=== PATIENT | female | born 1935 | race African-American/Black ===

== ENCOUNTER 2018-05-09 13:22 | Inpatient (IN) | payer OTHER ==
--- NOTE | 2018-05-09 13:29 | PDOC ---
History of Present Illness - General Chief Complaint: Shortness of Breath Stated Complaint: Shortness of Breath Time Seen by Provider: 05/09/18 13:29 Past History - Past Medical History Allergies/Adverse Reactions: Allergies Allergy/AdvReac Type Severity Reaction Status Date / Time No Known Allergies Allergy Verified 03/27/18 16:41 Home Medications: Ambulatory Orders Amlodipine Besylate [Norvasc -] 5 mg PO DAILY 03/27/18 Azathioprine [Azasan] 100 mg PO DAILY 03/27/18 Cholestyramine/Aspartame [Cholestyramine Light Packet] 4 gm PO BID 03/27/18 Ipratropium [place] 2 spray NS TID PRN 03/27/18 Metoprolol Succinate [Toprol Xl] 50 mg PO DAILY 03/27/18 Rivaroxaban [Xarelto -] 15 mg PO DAILY #14 tab 03/27/18 Spironolactone [Aldactone] 25 mg PO DAILY 03/27/18 Torsemide [Demadex] 20 mg PO BID 03/27/18 Tramadol HCl [Ultram] 50 mg PO BID 03/27/18 COPD: No DVT: No - Immunization History Immunization Up to Date: Yes - Suicide/Smoking/Psychosocial Hx Smoking History: Never smoked Have you smoked in the past 12 months: No Hx Alcohol Use: No Drug/Substance Use Hx: No Substance Use Type: None *DC/Admit/Observation/Transfer - Referrals Referrals: Stephani Yanez MD [Primary Care Provider] - - Patient Instructions - Post Discharge Activity
--- NOTE | 2018-05-09 13:32 | PDOC ---
History of Present Illness - General Chief Complaint: Shortness of Breath Stated Complaint: Shortness of Breath Time Seen by Provider: 05/09/18 13:29 - History of Present Illness Initial Comments: 83 year old female with PMH (per chart review) of HTN, CAD (3 V CABG), chronic dyspnea, CHF (preserved EF), early-onset dementia, Hep C, and newly discovered A -Fib (2 months prior) presenting with worsening shortness of breath and right sided lower extremity weakness since Monday. Per home health health and social care teacher and daughter at bedside, she has had a right sided lower extremity weakness for at least a few weeks but acutely worsened over the past week. wheel braider at bedside states that she had to stop her walk short a few times this week because she said that her right leg felt weak and she was fatigued with slightly increased respiratory rate. She did not syncopize or complain of chest pain, headache, fevers, chills, nausea, vomiting, urinary symptoms or other complaints. 05/09/18 13:37 Past History - Past Medical History Allergies/Adverse Reactions: Allergies Allergy/AdvReac Type Severity Reaction Status Date / Time No Known Allergies Allergy Verified 03/27/18 16:41 Home Medications: Ambulatory Orders Amlodipine Besylate [Norvasc -] 5 mg PO DAILY 03/27/18 Azathioprine [Azasan] 100 mg PO DAILY 03/27/18 Ipratropium [place] 2 spray NS TID PRN 03/27/18 Metoprolol Succinate [Toprol Xl] 50 mg PO DAILY 03/27/18 Rivaroxaban [Xarelto -] 15 mg PO DAILY #14 tab 03/27/18 Spironolactone [Aldactone -] 25 mg PO DAILY 03/27/18 Torsemide [Demadex -] 20 mg PO BID 03/27/18 Tramadol HCl [Ultram] 50 mg PO BID 03/27/18 Azathioprine [Imuran -] 100 mg PO DAILY tablet 05/11/18 Rivaroxaban [Xarelto -] 15 mg PO DAILY@1800 tablet 05/11/18 COPD: No DVT: No - Immunization History Immunization Up to Date: Yes - Suicide/Smoking/Psychosocial Hx Smoking History: Never smoked Have you smoked in the past 12 months: No Hx Alcohol Use: No Drug/Substance Use Hx: No Substance Use Type: None Review of Systems - Review of Systems Constitutional: No: Chills, Diaphoresis, Fever HEENTM: No: Blurred Vision, Recent change in vision Respiratory: Yes: Shortness of Breath. No: Cough, Orthopnea Cardiac (ROS): Yes: Lightheadedness. No: Chest Pain, Edema, Palpitations, Syncope ABD/GI: No: Diarrhea, Nausea, Vomiting : No: Burning, Dysuria, Discharge, Frequency Musculoskeletal: No: Back Pain, Gout, Joint Pain Integumentary: No: Bruising, Change in Color, Dryness, Erythema Neurological: Yes: Pre-Existing Deficit. No: Headache, Numbness Psychiatric: No: Anxiety, Depression Endocrine: No: Increased Hunger, Increased Thirst Hematologic/Lymphatic: No: Anemia, Blood Clots *Physical Exam - Physical Exam General Appearance: Yes: Nourished, Appropriately Dressed. No: Apparent Distress HEENT: positive: EOMI, LT, Normal Voice Neck: positive: Trachea midline, Normal Thyroid. negative: Tender Respiratory/Chest: positive: Lungs Clear, Normal Breath Sounds. negative: Chest Tender, Respiratory Distress, Accessory Muscle Use Cardiovascular: positive: Regular Rhythm, Regular Rate Gastrointestinal/Abdominal: positive: Normal Bowel Sounds, Flat. negative: Tender Musculoskeletal: positive: Other (Decreased strength in the right lower extremity). negative: Normal Inspection, Decreased Range of Motion Integumentary: positive: Normal Color, Dry, Warm Neurologic: positive: tank builder helper II-XII NML intact, Fully Oriented, Alert, Normal Mood/ Affect, Normal Response, Motor Strength 5/5 ED Treatment Course - LABORATORY CBC & Chemistry Diagram: 05/11/18 06:45 05/11/18 06:45 Medical Decision Making - Medical Decision Making 83 year old female with CAD and newly diagnosed afib presenting with presyncopal episodes and worsened right lower extremity weakness. Unclear as to what could be causing these symptoms as labs only demonstrating some CHF and head CT is negative. Patient does also have bilateral LE pitting edema so this could be related to worsening CHF. However, given patient's arthersclerotic history and overall clinical picture, patient admitted to neuro tele for further workup. 05/15/18 09:04 *DC/Admit/Observation/Transfer Diagnosis at time of Disposition: Pre-syncope - Discharge Dispostion Condition at time of disposition: Stable Decision to Admit order: Yes - Referrals - Patient Instructions - Post Discharge Activity
[2018-05-09 15:31] LABS: URINE APPEARANCE CLEAR; URINE BILIRUBIN NEGATIVE (<2.0 mg/dL); URINE COLOR YELLOW; URINE GLUCOSE (UA) NEGATIVE (NEGATIVE); URINE KETONE NEGATIVE (NEGATIVE); URINE LEUK ESTERASE TRACE (NEGATIVE); URINE NITRITE NEGATIVE (NEGATIVE); URINE PROTEIN NEGATIVE (NEGATIVE)
--- NOTE | 2018-05-09 15:31 | PDOC ---
Attending Attestation - HPI HPI: Patient is an 83 year old female with PMHx of HTN, CAD (3 vessel CABG), HTN, chronic dyspnea, CHF (preserved EF), early-onset dementia, Hep C, and newly discovered A-Fib (2 months prior) presenting with 3 days of shortness of breath and right sided lower extremity weakness. Patients aide states right sided weakness at baseline that has worsened intermittently since Monday. <Agnes Guan - Last Filed: 05/09/18 15:32> - Resident Resident Name: Jennifer Villa - ED Attending Attestation I have performed the following: I have examined & evaluated the patient, The case was reviewed & discussed with the resident, I agree w/resident's findings & plan, Exceptions are as noted - Physicial Exam PE: 05/09/18 16:43 Patient is awake and alert, well-nourished, in no distress Normocephalic and atraumatic PERRLA, EOMI, conjunctiva are pink CTA Irregularly irregular No lower extremity edema Cranial nerves II through XII are grossly intact; there is no pronation drift; motor is 5 of 54; Right lower extremity drift is noted; gait is deferred - Medical Decision Making 05/09/18 16:43 83-year-old female with recently diagnosed atrial fibrillation presents to the ER with worsening right lower extremity weakness and several episodes of dyspnea that resolved prior to arrival. In the ER, patient is nonfocal neurologically with right lower extremity drift noted on a neurological exam. Babinski is negative bilaterally. EKG reveals A. fib. Differential diagnoses includes ACS versus A. fib with RVR versus UTI versus CVA. Will obtain CT of head. Will obtain cardiac enzymes, UA and urine culture. We'll place an ops. <Hermilo Smith - Last Filed: 05/09/18 16:44>
[2018-05-09 15:44] LABS: BASO % 1.6 % (0-2.0); EOS % 1.4 % (0-4.5); HEMATOCRIT 37.3 % (32.4-45.2); HEMOGLOBIN 12.4 GM/dL (10.7-15.3); LYMPH % 30.8 % (8-40); MCH 29.2 pg (25.7-33.7); MCHC 33.1 g/dl (32.0-36.0); MEAN CELL VOLUME 88.3 fl (80-96); MEAN PLT VOLUME 8.6 fl (7.5-11.1); MONO % 7.3 % (3.8-10.2); NEUT % 58.9 % (42.8-82.8); PLATELET COUNT 264 K/MM3 (134-434); RBC 4.23 M/mm3 (3.60-5.2); WHITE BLOOD COUNT 6.5 K/mm3 (4.0-10.0)
[2018-05-09 15:51] LABS: EPI CELLS RARE /HPF (FEW); URINE HYALINE CAST 5 /lpf
[2018-05-09 15:57] LABS: INR 1.18 (0.83-1.09)
[2018-05-09 16:13] LABS: ALBUMIN 3.4 g/dl (3.4-5.0); ALK PHOS 57 U/L (45-117); ANION GAP 6 MMOL/L (8-16); BILIRUBIN,TOTAL 0.3 mg/dL (0.2-1); BLOOD UREA NITROGEN 23 mg/dL (7-18); CALCIUM 9.3 mg/dL (8.5-10.1); CHLORIDE 104 mmol/L (98-107); CHOLESTEROL 147 mg/dL (50-200); CO2 27 mmol/L (21-32); CREATININE 0.7 mg/dL (0.55-1.3); GLUCOSE,RANDOM 75 mg/dL (74-106); HDL CHOLESTEROL 68 mg/dL (40-60); POTASSIUM 4.1 mmol/L (3.5-5.1); SGOT/AST 14 U/L (15-37); SGPT/ALT 11 U/L (13-61); SODIUM 138 mmol/L (136-145); TOT PROT 7.2 g/dl (6.4-8.2); TRIGLYCERIDES 61 mg/dL (0-150)
[2018-05-09] MEDS: SODIUM CHLORIDE 1,000 ML IV SCH (16:15)
--- NOTE | 2018-05-09 18:04 | HP ---
CHIEF COMPLAINT: weakness, shortness of breath and right sided lower extremity weakness since Monday PCP: Dr. Stephani Yanez pcp, Dr Melissa [phone] HISTORY OF PRESENT ILLNESS: Patient is an 83 year old female with a significant past medical history of hypertension, CAD (3 vessel CABG), chronic dyspnea, CHF (preserved EF), dementia , Hep C, and newly diagnosed atrial fibrillation (on xarelto). Patient is brought into the ED by her family for a 2 month history of worsening shortness of breath on exertion and right sided lower extremity weakness worsening since Monday. Per her daughter patient ambulates with a rolling walker with standby assistance and has been having difficulty walking short distances secondary to increased dyspnea as well as c/o of right lower extremity weakness. No syncopal episodes or falls reported. Patient denies chest pain, shortness of breath at rest, fevers, chills, nausea, vomiting, urinary symptoms or other complaints. Daughter reports that patient was seen by her magazine designer, Dr. Melissa last week and a holter monitor and echocardiogram was also done last week. She is not aware of the results of these tests. In the ED she was noted to have ER course was notable for: (1)left upper thigh dependent edema from top of thigh to knee. (2)negative troponin (3) Recent Travel: PAST MEDICAL HISTORY: PAST SURGICAL HISTORY: Social History: Smoking: Alcohol: Drugs: Family History: Allergies No Known Allergies Allergy (Verified 03/27/18 16:41) HOME MEDICATIONS: Home Medications Medication Instructions Recorded Amlodipine Besylate [Norvasc -] 5 mg PO DAILY 03/27/18 Azathioprine [Azasan] 100 mg PO DAILY 03/27/18 Cholestyramine/Aspartame 4 gm PO BID 03/27/18 [Cholestyramine Light Packet] Ipratropium [place] 2 spray NS TID PRN 03/27/18 Metoprolol Succinate [Toprol Xl] 50 mg PO DAILY 03/27/18 Rivaroxaban [Xarelto -] 15 mg PO DAILY #14 tab 03/27/18 Spironolactone [Aldactone] 25 mg PO DAILY 03/27/18 Torsemide [Demadex] 20 mg PO BID 03/27/18 Tramadol HCl [Ultram] 50 mg PO BID 03/27/18 PHYSICAL EXAMINATION Vital Signs - 24 hr 05/09/18 13:30 Temperature 98.9 F Blood Pressure 154/84 O2 Sat by Pulse 100 Oximetry (%) GENERAL: Awake, alert, in no acute distress. HEAD: Normal with no signs of trauma. EYES: Pupils equal, round and reactive to light, extraocular movements intact, sclera anicteric, conjunctiva clear. No lid lag. EARS, NOSE, THROAT: Ears normal, nares patent, oropharynx clear without exudates. Moist mucous membranes. NECK: Normal range of motion, supple without lymphadenopathy, JVD, or masses. LUNGS: Breath sounds equal, clear to auscultation bilaterally. No wheezes, and no crackles. No accessory muscle use. HEART: irregular rate and rhythm ABDOMEN: Soft, nontender, not distended, normoactive bowel sounds, no guarding, no rebound, no masses. No hepatomegaly or splenomegaly. MUSCULOSKELETAL: Normal range of motion at all joints. No bony deformities or tenderness. No CVA tenderness. UPPER EXTREMITIES: No peripheral edema. LOWER EXTREMITIES:left upper thigh dependent edema from top of thigh to knee. NEUROLOGICAL: Normal speech. Normal gait. PSYCHIATRIC: Appropriate mood and affect. SKIN: Warm, dry, normal turgor, no rashes or lesions noted, normal capillary refill. Laboratory Results - last 24 hr 05/09/18 05/09/18 05/09/18 14:25 15:32 15:32 WBC 6.5 RBC 4.23 Hgb 12.4 Hct 37.3 MCV 88.3 MCH 29.2 MCHC 33.1 RDW 14.0 Plt Count 264 MPV 8.6 Absolute Neuts (auto) 3.8 Neutrophils % 58.9 D Lymphocytes % 30.8 D Monocytes % 7.3 Eosinophils % 1.4 Basophils % 1.6 Nucleated RBC % 0 PT with INR 14.00 H INR 1.18 H Sodium Potassium Chloride Carbon Dioxide Anion Gap BUN Creatinine Creat Clearance w eGFR Random Glucose Calcium Total Bilirubin AST ALT Alkaline Phosphatase Creatine Kinase Troponin I Total Protein Albumin Triglycerides Cholesterol Total LDL Cholesterol HDL Cholesterol Urine Color Yellow Urine Appearance Clear Urine pH 5.0 Ur Specific [place] 1.016 Urine Protein Negative Urine Glucose (UA) Negative Urine Ketones Negative Urine Blood Negative Urine Nitrite Negative Urine Bilirubin Negative Urine Urobilinogen 2.0 H Ur Leukocyte Esterase Trace Urine WBC (Auto) 8 Urine RBC (Auto) <1 Ur Epithelial Cells Rare Hyaline Casts 5 Blood Type Antibody Screen 05/09/18 05/09/18 05/09/18 15:32 15:32 15:32 WBC RBC Hgb Hct MCV MCH MCHC RDW Plt Count MPV Absolute Neuts (auto) Neutrophils % Lymphocytes % Monocytes % Eosinophils % Basophils % Nucleated RBC % PT with INR INR Sodium 138 Potassium 4.1 Chloride 104 Carbon Dioxide 27 Anion Gap 6 L BUN 23 H Creatinine 0.7 Creat Clearance w eGFR > 60 Random Glucose 75 Calcium 9.3 Total Bilirubin 0.3 AST 14 L ALT 11 L Alkaline Phosphatase 57 Creatine Kinase 39 Troponin I < 0.02 Cancelled Total Protein 7.2 Albumin 3.4 Triglycerides 61 Cholesterol 147 Total LDL Cholesterol 73 HDL Cholesterol 68 H Urine Color Urine Appearance Urine pH Ur Specific [place] Urine Protein Urine Glucose (UA) Urine Ketones Urine Blood Urine Nitrite Urine Bilirubin Urine Urobilinogen Ur Leukocyte Esterase Urine WBC (Auto) Urine RBC (Auto) Ur Epithelial Cells Hyaline Casts Blood Type A POSITIVE Antibody Screen Negative ASSESSMENT/PLAN: Patient is an 83 year old female with a significant past medical history of hypertension, CAD (3 vessel CABG), chronic dyspnea, CHF (preserved EF), dementia , Hep C, and newly diagnosed atrial fibrillation (on xarelto). Patient is brought into the ED by her family for a 2 month history of worsening shortness of breath on exertion and right sided lower extremity weakness worsening since Monday. Per her daughter patient ambulates with a rolling walker with standby assistance and has been having difficulty walking short distances secondary to increased dyspnea as well as c/o of right lower extremity weakness. No syncopal episodes or falls reported. Patient denies chest pain, shortness of breath at rest, fevers, chills, nausea, vomiting, urinary symptoms or other complaints. Plan: Hypertension, on metoprolol 50mg daily, norvasc 5mg daily. mildly elevated bp. Dyspnea, weakness: troponins negative x 2. attempting to call Dr. melissa office for echo and holter monitor results. CAD, on cholestyramine. Dyspnea with exertion, likely secondary to fluid overload. started on lasix 20mg iv po bid. bnp 3000. tolerating room air. CHF: on metoprolol, lasix bid. monitor intake and output Atrial fibrillation. recent diagnosis. on xarelto. metoprolol. currently rate controlled. Poor mobility: to be followed by PT, fall risk dementia: at baseline. Monitor on tele, trend troponins physical therapy Lasix 20mg bid Fall risk Cardiology consult Seen by neurology full code LOS < 48 hours. low salt diet Visit type - Emergency Visit Emergency Visit: Yes ED Registration Date: 05/09/18 Care time: The patient presented to the Emergency Department on the above date and was hospitalized for further evaluation of their emergent condition. - New Patient This patient is new to me today: Yes Date on this admission: 05/10/18 - Critical Care Critical Care patient: No
[2018-05-09] MEDS ORDERED: ALBUTEROL SO4 2.5/IPRATROPIUM 0.5 INH SOL 3 ML VIAL.NEB. NEB PRN (18:42)
[2018-05-09] MEDS ORDERED: traMADol HCL 50 MG TABLET PO PRN (18:43)
[2018-05-09] MEDS ORDERED: RIVAROXABAN 15 MG TABLET PO ONE (20:01)
[2018-05-09] MEDS ORDERED: FUROSEMIDE 40 MG/4 ML INJECTABLE VIAL IVPUSH ONE (20:06)
[2018-05-09] MEDS ORDERED: FUROSEMIDE 40 MG/4 ML INJECTABLE VIAL ONE (23:00)
[2018-05-10 00:05] VITALS: BMI 34.8
[2018-05-10 07:15] LABS: BASO % 0.8 % (0-2.0); EOS % 2.7 % (0-4.5); HEMATOCRIT 36.2 % (32.4-45.2); HEMOGLOBIN 11.7 GM/dL (10.7-15.3); LYMPH % 48.3 % (8-40); MCH 28.5 pg (25.7-33.7); MCHC 32.5 g/dl (32.0-36.0); MEAN CELL VOLUME 87.9 fl (80-96); MEAN PLT VOLUME 8.7 fl (7.5-11.1); MONO % 8.5 % (3.8-10.2); NEUT % 39.7 % (42.8-82.8); PLATELET COUNT 240 K/MM3 (134-434); RBC 4.11 M/mm3 (3.60-5.2); RDW 14.2 % (11.6-15.6); WHITE BLOOD COUNT 4.2 K/mm3 (4.0-10.0)
[2018-05-10 07:40] LABS: ALBUMIN 2.7 g/dl (3.4-5.0); ALK PHOS 48 U/L (45-117); ANION GAP 6 MMOL/L (8-16); BILIRUBIN,TOTAL 0.4 mg/dL (0.2-1); BLOOD UREA NITROGEN 18 mg/dL (7-18); CALCIUM 8.7 mg/dL (8.5-10.1); CHLORIDE 107 mmol/L (98-107); CHOLESTEROL 122 mg/dL (50-200); CO2 27 mmol/L (21-32); CREATININE 0.5 mg/dL (0.55-1.3); GLUCOSE,RANDOM 69 mg/dL (74-106); HDL CHOLESTEROL 56 mg/dL (40-60); MAGNESIUM 2.1 mg/dL (1.8-2.4); PHOSPHOROUS 3.6 mg/dL (2.5-4.9); POTASSIUM 4.3 mmol/L (3.5-5.1); SGOT/AST 9 U/L (15-37); SGPT/ALT 10 U/L (13-61); SODIUM 141 mmol/L (136-145); TOT PROT 6.1 g/dl (6.4-8.2); TRIGLYCERIDES 57 mg/dL (0-150)
[2018-05-10 08:55] LABS: N-TERMINAL BNP 3219.4 pg/ml (5-450)
[2018-05-10] MEDS ORDERED: FLU VACCINE QUAD 60 MCG/0.5 ML (MDV 18-19) IM ONE (10:00)
[2018-05-10] MEDS ORDERED: FUROSEMIDE 40 MG/4 ML INJECTABLE VIAL IVPUSH SCH (10:00)
--- NOTE | 2018-05-10 10:10 | CON.NEURO ---
Consult - History of Present Illness History of Present Illness: 83 year old female with a significant past medical history of hypertension, CAD (3 vessel CABG), chronic dyspnea, CHF (preserved EF), dementia, Hep C, and newly diagnosed atrial fibrillation (on xarelto). Patient is brought into the ED by her family for a 2 month history of worsening shortness of breath on exertion and right sided lower extremity weakness worsening since Monday. Per her daughter patient ambulates with a rolling walker with standby assistance and has been having difficulty walking short distances secondary to increased dyspnea as well as c/o of right lower extremity weakness. No syncopal episodes or falls reported. Patient denies chest pain, shortness of breath at rest, fevers, chills, nausea, vomiting, urinary symptoms or other complaints. PT poor HX though denies weakness. denies numbness tingling or back pain. HD CT : No definite CT evidence of acute intracranial pathology. There appears to be an approximately 2 cm dural based soft tissue focus within the right posterior lateral aspect of the posterior cranial fossa suggestive of a meningioma on this noncontrast study. Correlation with MRI versus contrast enhanced CT is suggested. - Alcohol/Substance Use Hx Alcohol Use: No - Smoking History Smoking history: Never smoked Have you smoked in the past 12 months: No Home Medications - Allergies Allergies/Adverse Reactions: Allergies Allergy/AdvReac Type Severity Reaction Status Date / Time No Known Allergies Allergy Verified 03/27/18 16:41 - Home Medications Home Medications: Ambulatory Orders Amlodipine Besylate [Norvasc -] 5 mg PO DAILY 03/27/18 Azathioprine [Azasan] 100 mg PO DAILY 03/27/18 Cholestyramine/Aspartame [Cholestyramine Light Packet] 4 gm PO BID 03/27/18 Ipratropium [place] 2 spray NS TID PRN 03/27/18 Metoprolol Succinate [Toprol Xl] 50 mg PO DAILY 03/27/18 Rivaroxaban [Xarelto -] 15 mg PO DAILY #14 tab 03/27/18 Spironolactone [Aldactone] 25 mg PO DAILY 03/27/18 Torsemide [Demadex] 20 mg PO BID 03/27/18 Tramadol HCl [Ultram] 50 mg PO BID 03/27/18 Physical Exam-Neuro Vital Signs: Vital Signs Temperature 98.0 F 05/10/18 08:59 Pulse Rate 78 05/10/18 08:59 Respiratory Rate 16 05/10/18 09:01 Blood Pressure 146/86 05/10/18 08:59 O2 Sat by Pulse Oximetry (%) 98 05/10/18 09:01 Labs: CBC, BMP 05/10/18 05:30 05/10/18 05:30 INR, PTT INR 1.18 (0.83-1.09) H 05/09/18 15:32 - Neuro Exam Level Of Consciousness: Yes: Alert (awake, oriented to place, not yr, EOMI, no facial, motor 5/5 prox and distal including LE , plantars down ) Imaging - Results Cat Scan: Report Reviewed, Image Reviewed Problem List - Problems (1) Right leg weakness Code(s): R29.898 - OTH SYMPTOMS AND SIGNS INVOLVING THE MUSCULOSKELETAL SYSTEM (2) Atrial fibrillation Code(s): I48.91 - UNSPECIFIED ATRIAL FIBRILLATION Qualifiers: Atrial fibrillation type: unspecified Qualified Code(s): I48.91 - Unspecified atrial fibrillation Assessment/Plan 83 year old female with a significant past medical history of hypertension, CAD (3 vessel CABG), chronic dyspnea, CHF (preserved EF), dementia, Hep C, and newly diagnosed atrial fibrillation (on xarelto). Patient is brought into the ED by her family for a 2 month history of worsening shortness of breath on exertion and right sided lower extremity weakness worsening since Monday. Per her daughter patient ambulates with a rolling walker with standby assistance and has been having difficulty walking short distances secondary to increased dyspnea as well as c/o of right lower extremity weakness. No syncopal episodes or falls reported. Patient denies chest pain, shortness of breath at rest, fevers, chills, nausea, vomiting, urinary symptoms or other complaints. HD CT : No definite CT evidence of acute intracranial pathology. There appears to be an approximately 2 cm dural based soft tissue focus within the right posterior lateral aspect of the posterior cranial fossa suggestive of a meningioma on this noncontrast study. Correlation with MRI versus contrast enhanced CT is suggested. AP : Dyspnea with ? Right leg weakness, though no focal ABNL on neuro exam CT noted --unrelated to presentation cardiopulm EDGAR for shortness of breath no signs of new cerebral ischemic event, LS radiculopathy or myelopathy etc consider gait rehab DR MACDONALD
[2018-05-10] MEDS: SPIRONOLACTONE 25 MG TABLET (FP) PO SCH (10:17)
[2018-05-10] MEDS: amLODIPine BESYLATE 5 MG TABLET (FP) PO SCH (10:17)
--- NOTE | 2018-05-10 12:15 | CON.CARD ---
Consult Consult Specialty:: Cardiology Referred by:: Nina Reason for Consultation:: shortness of breath, CHF - History of Present Illness Chief Complaint: shortness of breath History of Present Illness: 83F h/o HTN, CAD (s/p 3 vessel CABG), chronic dyspnea, CHF (preserved EF), dementia, Hep C, and newly diagnosed atrial fibrillation (on xarelto) p/w weakness, dyspnea and RLE weakness since Monday. Usually walks with walker. was feeling weaker and more short of breath so couldnot wakls as far. Sees Dr. Melissa for cardiology, had echo and holter monitor, reportedly normal EF. Recently on Xarelto for new dx afib. Trop neg x 2. Noted to have edema as well. received IV lasix in ER. - Past Medical History Cardio/Vascular: Yes: CAD, CHF - Alcohol/Substance Use Hx Alcohol Use: No - Smoking History Smoking history: Never smoked Have you smoked in the past 12 months: No Home Medications - Allergies Allergies/Adverse Reactions: Allergies Allergy/AdvReac Type Severity Reaction Status Date / Time No Known Allergies Allergy Verified 03/27/18 16:41 - Home Medications Home Medications: Ambulatory Orders Amlodipine Besylate [Norvasc -] 5 mg PO DAILY 03/27/18 Azathioprine [Azasan] 100 mg PO DAILY 03/27/18 Cholestyramine/Aspartame [Cholestyramine Light Packet] 4 gm PO BID 03/27/18 Ipratropium [place] 2 spray NS TID PRN 03/27/18 Metoprolol Succinate [Toprol Xl] 50 mg PO DAILY 03/27/18 Rivaroxaban [Xarelto -] 15 mg PO DAILY #14 tab 03/27/18 Spironolactone [Aldactone] 25 mg PO DAILY 03/27/18 Torsemide [Demadex] 20 mg PO BID 03/27/18 Tramadol HCl [Ultram] 50 mg PO BID 03/27/18 Family Disease History - Family Disease History Family History: Unremarkable Review of Systems - Review of Systems Constitutional: reports: No Symptoms, Weakness Eyes: reports: No Symptoms HENT: reports: No Symptoms Neck: reports: No Symptoms Cardiovascular: reports: No Symptoms Respiratory: reports: SOB on Exertion Gastrointestinal: reports: No Symptoms Genitourinary: reports: No Symptoms Musculoskeletal: reports: No Symptoms Integumentary: reports: No Symptoms Neurological: reports: No Symptoms Endocrine: reports: No Symptoms Hematology/Lymphatic: reports: No Symptoms Psychiatric: reports: No Symptoms Vital Signs: Vital Signs Temperature 98.0 F 05/10/18 08:59 Pulse Rate 78 05/10/18 08:59 Respiratory Rate 16 05/10/18 09:01 Blood Pressure 146/86 05/10/18 08:59 O2 Sat by Pulse Oximetry (%) 98 05/10/18 09:01 Constitutional: Yes: Well Nourished, No Distress, Calm Eyes: Yes: Conjunctiva Clear, EOM Intact HENT: Yes: Atraumatic, Normocephalic Neck: Yes: Supple, Trachea Midline Respiratory: Yes: Regular, Rales Gastrointestinal: Yes: WNL Renal/: Yes: WNL Cardiovascular: Yes: Pulse Irregular JVD: Yes Carotid Bruit: No Heart Sounds: Yes: S1, S2 Musculoskeletal: Yes: WNL Extremities: Yes: WNL Edema: No Peripheral Pulses WNL: No Peripheral Pulses: 2+ Left Doralis Pedis, 2+ Right Dorsalis Pedis Integumentary: Yes: WNL Neurological: Yes: Alert, Oriented ...Motor Strength: WNL Psychiatric: Yes: Alert, Oriented - Other Data Labs, Other Data: CBC, BMP 05/10/18 05:30 05/10/18 05:30 INR, PTT INR 1.18 (0.83-1.09) H 05/09/18 15:32 Troponin, BNP 05/09/18 05/09/18 05/09/18 15:32 15:32 22:38 Troponin I < 0.02 Cancelled B-Natriuretic Peptide 2915.9 H 05/09/18 05/10/18 05/10/18 22:38 05:30 05:30 Troponin I < 0.02 < 0.02 B-Natriuretic Peptide 3219.4 H Troponin, BNP 05/09/18 05/09/18 05/09/18 15:32 15:32 22:38 Troponin I < 0.02 Cancelled B-Natriuretic Peptide 2915.9 H 05/09/18 05/10/18 05/10/18 22:38 05:30 05:30 Troponin I < 0.02 < 0.02 B-Natriuretic Peptide 3219.4 H Assessment/Plan EKG:afib,old septal infarct, no acute ischemic changes CXR: no acute process Tele: afib, rate controlled 83F h/o HTN, CAD (s/p 3 vessel CABG), chronic dyspnea, CHF (preserved EF), dementia, Hep C, and newly diagnosed atrial fibrillation (on xarelto) p/w weakness, dyspnea and RLE weakness dyspnea, acute diastolic CHF exac - JVD on exam, dyspnea on exertion,BNP >3000 likely in setting of CHF exacerbation - continue lasix 20 mg IV BID,on torsemide 20mg BID at home - monitor standing weights, Cr, I/O - would obtain recent testing from Dr. Melissa's office - continue metoprolol, spironolactone, CAD - trop neg x 2, no ischemic changes on EKG, history less consistent with ACS - continue xarelto, metoprolol Afib - rate controlled, continue metoprolol, xarelto HTN - stable, continue current meds
[2018-05-10] MEDS ORDERED: PT OWN MED DRAWER 7, Y5N ONE (12:44)
[2018-05-10] MEDS: azaTHIOprine 50 MG TABLET PO SCH (12:45)
--- NOTE | 2018-05-10 14:27 | PN ---
Physical Exam: SUBJECTIVE: Patient seen and examined at the bedside. feels better today. OBJECTIVE: bnp 3200 Vital Signs Period Temp Pulse Resp BP Sys/Leslie Pulse Ox Last 24 Hr 97.9 F-98.4 F 72-88 16-22 131-168/74-86 98-100 GENERAL: Awake, alert, in no acute distress. HEAD: Normal with no signs of trauma. EYES: Pupils equal, round and reactive to light, extraocular movements intact, sclera anicteric, conjunctiva clear. No lid lag. EARS, NOSE, THROAT: Ears normal, nares patent, oropharynx clear without exudates. Moist mucous membranes. NECK: Normal range of motion, supple without lymphadenopathy, JVD, or masses. LUNGS: Breath sounds equal, clear to auscultation bilaterally. No wheezes, and no crackles. No accessory muscle use. HEART: irregular rate and rhythm ABDOMEN: Soft, nontender, not distended, normoactive bowel sounds, no guarding, no rebound, no masses. No hepatomegaly or splenomegaly. MUSCULOSKELETAL: Normal range of motion at all joints. No bony deformities or tenderness. No CVA tenderness. UPPER EXTREMITIES: No peripheral edema. LOWER EXTREMITIES:left upper thigh dependent edema from top of thigh to knee - improving NEUROLOGICAL: Normal speech. Normal gait. PSYCHIATRIC: Appropriate mood and affect. SKIN: Warm, dry, normal turgor, no rashes or lesions noted, normal capillary refill. Laboratory Results - last 24 hr 05/09/18 05/09/18 05/09/18 14:25 15:32 15:32 WBC 6.5 RBC 4.23 Hgb 12.4 Hct 37.3 MCV 88.3 MCH 29.2 MCHC 33.1 RDW 14.0 Plt Count 264 MPV 8.6 Absolute Neuts (auto) 3.8 Neutrophils % 58.9 D Lymphocytes % 30.8 D Monocytes % 7.3 Eosinophils % 1.4 Basophils % 1.6 Nucleated RBC % 0 PT with INR 14.00 H INR 1.18 H Sodium Potassium Chloride Carbon Dioxide Anion Gap BUN Creatinine Creat Clearance w eGFR Random Glucose Hemoglobin A1c % Calcium Phosphorus Magnesium Total Bilirubin AST ALT Alkaline Phosphatase Creatine Kinase Troponin I B-Natriuretic Peptide Total Protein Albumin Triglycerides Cholesterol Total LDL Cholesterol HDL Cholesterol Urine Color Yellow Urine Appearance Clear Urine pH 5.0 Ur Specific [place] 1.016 Urine Protein Negative Urine Glucose (UA) Negative Urine Ketones Negative Urine Blood Negative Urine Nitrite Negative Urine Bilirubin Negative Urine Urobilinogen 2.0 H Ur Leukocyte Esterase Trace Urine WBC (Auto) 8 Urine RBC (Auto) <1 Ur Epithelial Cells Rare Hyaline Casts 5 Blood Type Antibody Screen 05/09/18 05/09/18 05/09/18 15:32 15:32 15:32 WBC RBC Hgb Hct MCV MCH MCHC RDW Plt Count MPV Absolute Neuts (auto) Neutrophils % Lymphocytes % Monocytes % Eosinophils % Basophils % Nucleated RBC % PT with INR INR Sodium 138 Potassium 4.1 Chloride 104 Carbon Dioxide 27 Anion Gap 6 L BUN 23 H Creatinine 0.7 Creat Clearance w eGFR > 60 Random Glucose 75 Hemoglobin A1c % Calcium 9.3 Phosphorus Magnesium Total Bilirubin 0.3 AST 14 L ALT 11 L Alkaline Phosphatase 57 Creatine Kinase 39 Troponin I < 0.02 Cancelled B-Natriuretic Peptide Total Protein 7.2 Albumin 3.4 Triglycerides 61 Cholesterol 147 Total LDL Cholesterol 73 HDL Cholesterol 68 H Urine Color Urine Appearance Urine pH Ur Specific [place] Urine Protein Urine Glucose (UA) Urine Ketones Urine Blood Urine Nitrite Urine Bilirubin Urine Urobilinogen Ur Leukocyte Esterase Urine WBC (Auto) Urine RBC (Auto) Ur Epithelial Cells Hyaline Casts Blood Type A POSITIVE Antibody Screen Negative 05/09/18 05/09/18 05/10/18 22:38 22:38 05:30 WBC 4.2 RBC 4.11 Hgb 11.7 Hct 36.2 MCV 87.9 MCH 28.5 MCHC 32.5 RDW 14.2 Plt Count 240 MPV 8.7 Absolute Neuts (auto) 1.7 Neutrophils % 39.7 L D Lymphocytes % 48.3 H D Monocytes % 8.5 Eosinophils % 2.7 D Basophils % 0.8 Nucleated RBC % 0 PT with INR INR Sodium Potassium Chloride Carbon Dioxide Anion Gap BUN Creatinine Creat Clearance w eGFR Random Glucose Hemoglobin A1c % Calcium Phosphorus Magnesium Total Bilirubin AST ALT Alkaline Phosphatase Creatine Kinase Troponin I < 0.02 B-Natriuretic Peptide 2915.9 H Total Protein Albumin Triglycerides Cholesterol Total LDL Cholesterol HDL Cholesterol Urine Color Urine Appearance Urine pH Ur Specific [place] Urine Protein Urine Glucose (UA) Urine Ketones Urine Blood Urine Nitrite Urine Bilirubin Urine Urobilinogen Ur Leukocyte Esterase Urine WBC (Auto) Urine RBC (Auto) Ur Epithelial Cells Hyaline Casts Blood Type Antibody Screen 05/10/18 05/10/18 05/10/18 05:30 05:30 05:30 WBC RBC Hgb Hct MCV MCH MCHC RDW Plt Count MPV Absolute Neuts (auto) Neutrophils % Lymphocytes % Monocytes % Eosinophils % Basophils % Nucleated RBC % PT with INR INR Sodium 141 Potassium 4.3 Chloride 107 Carbon Dioxide 27 Anion Gap 6 L BUN 18 Creatinine 0.5 L Creat Clearance w eGFR > 60 Random Glucose 69 L Hemoglobin A1c % 5.0 Calcium 8.7 Phosphorus 3.6 Magnesium 2.1 Total Bilirubin 0.4 AST 9 L ALT 10 L Alkaline Phosphatase 48 Creatine Kinase Troponin I < 0.02 B-Natriuretic Peptide 3219.4 H Total Protein 6.1 L Albumin 2.7 L Triglycerides 57 Cholesterol 122 Total LDL Cholesterol 60 HDL Cholesterol 56 Urine Color Urine Appearance Urine pH Ur Specific [place] Urine Protein Urine Glucose (UA) Urine Ketones Urine Blood Urine Nitrite Urine Bilirubin Urine Urobilinogen Ur Leukocyte Esterase Urine WBC (Auto) Urine RBC (Auto) Ur Epithelial Cells Hyaline Casts Blood Type Antibody Screen Active Medications Generic Name Dose Route Start Last Admin Trade Name Freq PRN Reason Stop Dose Admin Albuterol/Ipratropium 1 amp 05/09/18 18:42 Duoneb - NEB Q6H PRN ASTHMA Amlodipine Besylate 5 mg 05/10/18 10:00 05/10/18 10:17 Norvasc - PO 5 mg DAILY LUZMARIA Administration Azathioprine 100 mg 05/10/18 10:00 05/10/18 12:45 Imuran - PO 100 mg DAILY LUZMARIA Administration Furosemide 20 mg 05/10/18 14:00 Lasix Injection - IVPUSH BID@0600,1400 [facility] Metoprolol Succinate 50 mg 05/10/18 10:00 05/10/18 10:17 Toprol Xl - PO 50 mg DAILY LUZMARIA Administration Rivaroxaban 15 mg 05/10/18 18:00 Xarelto - PO DAILY@1800 [facility] Spironolactone 25 mg 05/10/18 10:00 05/10/18 10:17 Aldactone - PO 25 mg DAILY LUZMARIA Administration Tramadol HCl 50 mg 05/09/18 18:43 Ultram - PO Q8H PRN PAIN LEVEL 7 - 10 ASSESSMENT/PLAN: Patient is an 83 year old female with a significant past medical history of hypertension, CAD (3 vessel CABG), chronic dyspnea, CHF (preserved EF), dementia , Hep C, and newly diagnosed atrial fibrillation (on xarelto). Patient is brought into the ED by her family for a 2 month history of worsening shortness of breath on exertion and right sided lower extremity weakness worsening since Monday. Per her daughter patient ambulates with a rolling walker with standby assistance and has been having difficulty walking short distances secondary to increased dyspnea as well as c/o of right lower extremity weakness. No syncopal episodes or falls reported. Patient denies chest pain, shortness of breath at rest, fevers, chills, nausea, vomiting, urinary symptoms or other complaints. Plan: Hypertension, on metoprolol 50mg daily, norvasc 5mg daily. mildly elevated bp. Dyspnea, weakness: troponins negative x 2. attempting to call Dr. ortega office for echo and holter monitor results. CAD, on cholestyramine. Dyspnea with exertion, likely secondary to fluid overload. started on lasix 20mg iv po bid. bnp 3000. tolerating room air. CHF: on metoprolol, lasix bid. monitor intake and output Atrial fibrillation. recent diagnosis. on xarelto. metoprolol. currently rate controlled. Poor mobility: to be followed by PT, fall risk dementia: at baseline. Monitor on tele, trend troponins physical therapy Lasix 20mg bid Fall risk Cardiology following neuro consult full code LOS < 48 hours. low salt diet Visit type - Emergency Visit Emergency Visit: Yes ED Registration Date: 05/09/18 Care time: The patient presented to the Emergency Department on the above date and was hospitalized for further evaluation of their emergent condition. - New Patient This patient is new to me today: Yes Date on this admission: 05/10/18 - Critical Care Critical Care patient: No - Discharge Referral Referred to [facility] No
[2018-05-10] MEDS: FUROSEMIDE 40 MG/4 ML INJECTABLE VIAL IVPUSH SCH (14:40)
[2018-05-10] MEDS: SODIUM CHLORIDE 1,000 ML IV SCH (18:00)
[2018-05-10] MEDS ORDERED: RIVAROXABAN 15 MG TABLET PO SCH (18:00)
--- NOTE | 2018-05-10 22:05 | EKG ---
Test Reason : Blood Pressure : / mmHG Vent. Rate : 080 BPM Atrial Rate : 039 BPM P-R Int : 000 ms QRS Dur : 090 ms QT Int : 364 ms P-R-T Axes : 000 -04 038 degrees QTc Int : 419 ms ATRIAL FIBRILLATION SEPTAL INFARCT , AGE UNDETERMINED ABNORMAL ECG WHEN COMPARED WITH ECG OF 27-MAR-2018 16:46, SEPTAL INFARCT IS NOW PRESENT T WAVE INVERSION NO LONGER EVIDENT IN LATERAL LEADS Confirmed by TAYLOR LOU MD ([id number]) on 05/10/2018 10:04:47 PM Referred By: Confirmed By:TAYLOR LOU MD
[2018-05-11] MEDS: FUROSEMIDE 40 MG/4 ML INJECTABLE VIAL IVPUSH SCH (05:37)
[2018-05-11 07:30] LABS: BASO % 0.7 % (0-2.0); EOS % 2.9 % (0-4.5); HEMOGLOBIN 11.9 GM/dL (10.7-15.3); LYMPH % 43.9 % (8-40); MCH 28.9 pg (25.7-33.7); MCHC 32.9 g/dl (32.0-36.0); MEAN CELL VOLUME 87.9 fl (80-96); MEAN PLT VOLUME 8.3 fl (7.5-11.1); MONO % 8.7 % (3.8-10.2); NEUT % 43.8 % (42.8-82.8); PLATELET COUNT 247 K/MM3 (134-434); RDW 14.1 % (11.6-15.6); WHITE BLOOD COUNT 4.7 K/mm3 (4.0-10.0)
[2018-05-11 08:05] LABS: ALBUMIN 2.8 g/dl (3.4-5.0); ALK PHOS 52 U/L (45-117); ANION GAP 6 MMOL/L (8-16); BILIRUBIN,TOTAL 0.4 mg/dL (0.2-1); BLOOD UREA NITROGEN 23 mg/dL (7-18); CHLORIDE 106 mmol/L (98-107); CO2 27 mmol/L (21-32); CREATININE 0.7 mg/dL (0.55-1.3); GLUCOSE,RANDOM 75 mg/dL (74-106); POTASSIUM 4.1 mmol/L (3.5-5.1); SGOT/AST 10 U/L (15-37); SGPT/ALT 9 U/L (13-61); SODIUM 139 mmol/L (136-145); TOT PROT 6.2 g/dl (6.4-8.2)
[2018-05-11] MEDS: azaTHIOprine 50 MG TABLET PO SCH (10:02)
[2018-05-11] MEDS: amLODIPine BESYLATE 5 MG TABLET (FP) PO SCH (10:02)
[2018-05-11] MEDS: SPIRONOLACTONE 25 MG TABLET (FP) PO SCH (10:02)
--- NOTE | 2018-05-11 12:45 | PN ---
Progress Note (short form) - Note Progress Note: s: no chest pain, palps, dyspnea, orthopnea, PND, edema 83F h/o HTN, CAD (s/p 3 vessel CABG), chronic dyspnea, CHF (preserved EF), dementia, Hep C, and newly diagnosed atrial fibrillation (on xarelto) p/w weakness, dyspnea and RLE weakness since Monday. Usually walks with walker. was feeling weaker and more short of breath so couldnot wakls as far. Sees Dr. Melissa for cardiology, had echo and holter monitor, reportedly normal EF. Recently on Xarelto for new dx afib. Trop neg x 2. Noted to have edema as well. received IV lasix in ER. - Past Medical History Cardio/Vascular: Yes: CAD, CHF - Alcohol/Substance Use Hx Alcohol Use: No - Smoking History Smoking history: Never smoked Have you smoked in the past 12 months: No Home Medications - Allergies Allergies/Adverse Reactions: Allergies Allergy/AdvReac Type Severity Reaction Status Date / Time No Known Allergies Allergy Verified 03/27/18 16:41 - Home Medications Home Medications: Ambulatory Orders Amlodipine Besylate [Norvasc -] 5 mg PO DAILY 03/27/18 Azathioprine [Azasan] 100 mg PO DAILY 03/27/18 Cholestyramine/Aspartame [Cholestyramine Light Packet] 4 gm PO BID 03/27/18 Ipratropium [place] 2 spray NS TID PRN 03/27/18 Metoprolol Succinate [Toprol Xl] 50 mg PO DAILY 03/27/18 Rivaroxaban [Xarelto -] 15 mg PO DAILY #14 tab 03/27/18 Spironolactone [Aldactone] 25 mg PO DAILY 03/27/18 Torsemide [Demadex] 20 mg PO BID 03/27/18 Tramadol HCl [Ultram] 50 mg PO BID 03/27/18 Family Disease History - Family Disease History Family History: Unremarkable Review of Systems - Review of Systems Constitutional: reports: No Symptoms, Weakness Eyes: reports: No Symptoms HENT: reports: No Symptoms Neck: reports: No Symptoms Cardiovascular: reports: No Symptoms Respiratory: reports: SOB on Exertion Gastrointestinal: reports: No Symptoms Genitourinary: reports: No Symptoms Musculoskeletal: reports: No Symptoms Integumentary: reports: No Symptoms Neurological: reports: No Symptoms Endocrine: reports: No Symptoms Hematology/Lymphatic: reports: No Symptoms Psychiatric: reports: No Symptoms Vital Signs: Vital Signs Temperature 98.0 F 05/10/18 08:59 Pulse Rate 78 05/10/18 08:59 Respiratory Rate 16 05/10/18 09:01 Blood Pressure 146/86 05/10/18 08:59 O2 Sat by Pulse Oximetry (%) 98 05/10/18 09:01 Constitutional: Yes: Well Nourished, No Distress, Calm Eyes: Yes: Conjunctiva Clear, EOM Intact HENT: Yes: Atraumatic, Normocephalic Neck: Yes: Supple, Trachea Midline Respiratory: Regular, CTAB Gastrointestinal: Yes: WNL Renal/: Yes: WNL Cardiovascular: Yes: Pulse Irregular JVD: No Carotid Bruit: No Heart Sounds: Yes: S1, S2 Musculoskeletal: Yes: WNL Extremities: Yes: WNL Edema: No Peripheral Pulses WNL: No Peripheral Pulses: 2+ Left Doralis Pedis, 2+ Right Dorsalis Pedis Integumentary: Yes: WNL Neurological: Yes: Alert, Oriented ...Motor Strength: WNL Psychiatric: Yes: Alert, Oriented Assessment/Plan EKG:afib,old septal infarct, no acute ischemic changes CXR: no acute process Tele: afib, rate controlled, scott overnight 83F h/o HTN, CAD (s/p 3 vessel CABG), chronic dyspnea, CHF (preserved EF), dementia, Hep C, and newly diagnosed atrial fibrillation (on xarelto) p/w weakness, dyspnea and RLE weakness dyspnea, acute diastolic CHF exac - JVD on exam, dyspnea on exertion,BNP >3000 likely in setting of CHF exacerbation - improved today, no JVD, lungs clear with IV lasix 20 mg - would transition to PO torsemide 20 mg BID - monitor standing weights, Cr, I/O - echo pending - continue metoprolol, spironolactone, CAD - trop neg x 2, no ischemic changes on EKG, history less consistent with ACS - continue xarelto, metoprolol Afib - rate controlled, continue metoprolol, xarelto HTN - stable, continue current meds
--- NOTE | 2018-05-11 14:40 | CONSULT ---
<Franki Flores P - Last Filed: 05/11/18 14:50> - Consultation REQUESTING PROVIDER: Ryan Alonzo CONSULT REQUEST: We have been asked to surgically evaluate this patient for incidental finding of carotid stenosis PCP: Kary Wan NP HPI: Called to eval 83 yo female with PMHx as noted below. Due to patient's dementia status, majority of information obtained from patient's medical records. Admitted with dyspnea and RLE weakness since Monday. Recently started on Xarelto for newly diagnosed afib. A carotid ultrasound shows small plaques at the right common carotid bifurcation and buld without evidence of hemodynamic stenosis. Moderate -sized plaques at the left common carotid bifurcation without hemodynamic significance. PMHx: HTN, CAD, Chronic dyspnea, CHF (preserved EF), Dementia, Hep C, Afib PSHx: 3 vessel CABG Home Meds Amlodipine Besylate [Norvasc -] 5 mg PO DAILY 03/27/18 Azathioprine [Azasan] 100 mg PO DAILY 03/27/18 Cholestyramine/Aspartame [Cholestyramine Light Packet] 4 gm PO BID 03/27/18 Ipratropium [place] 2 spray NS TID PRN 03/27/18 Metoprolol Succinate [Toprol Xl] 50 mg PO DAILY 03/27/18 Rivaroxaban [Xarelto -] 15 mg PO DAILY #14 tab 03/27/18 Spironolactone [Aldactone] 25 mg PO DAILY 03/27/18 Torsemide [Demadex] 20 mg PO BID 03/27/18 Tramadol HCl [Ultram] 50 mg PO BID 03/27/18 Allergies: NKA ROS: Constitutional: reports: Weakness Eyes: reports: No Symptoms HENT: reports: No Symptoms Neck: reports: No Symptoms Cardiovascular: reports: No Symptoms Respiratory: reports: SOB on Exertion Gastrointestinal: reports: No Symptoms Genitourinary: reports: No Symptoms Musculoskeletal: reports: No Symptoms Integumentary: reports: No Symptoms Neurological: reports: No Symptoms Endocrine: reports: No Symptoms Hematology/Lymphatic: reports: No Symptoms Psychiatric: reports: No Symptoms PE: Constitutional: Yes: Well Nourished, No Distress, Calm Eyes: Yes: Conjunctiva Clear, EOM Intact HENT: Yes: Atraumatic, Normocephalic Neck: Yes: Supple, Trachea Midline Respiratory: Yes: Regular, Rales Gastrointestinal: Yes: WNL Renal/: Yes: WNL Cardiovascular: Yes: Pulse Irregular JVD: Yes Carotid Bruit: No Heart Sounds: Yes: S1, S2 Musculoskeletal: Yes: WNL Extremities: Yes: WNL Edema: No Peripheral Pulses WNL: No Peripheral Pulses: 2+ Left Doralis Pedis, 2+ Right Dorsalis Pedis Integumentary: Yes: WNL Neurological: Yes: Alert, Oriented ...Motor Strength: WNL Psychiatric: Yes: Alert, Oriented Last Vital Signs Temp Pulse Resp BP Pulse Ox 98.4 F 87 16 145/91 100 05/11/18 08:23 05/11/18 08:23 05/11/18 08:23 05/11/18 08:23 05/11/18 08:23 CBC, BMP 05/11/18 06:45 05/11/18 06:45 INR, PTT INR 1.18 (0.83-1.09) H 05/09/18 15:32 Blood Type Blood Type A POSITIVE 05/09/18 15:32 Problem List - Problems (1) Atrial fibrillation Assessment/Plan: Patient is hemodynamically stable without significant carotid stenosis. Cont medical management. No surgical intervention warranted. Above plan discussed with attending and agrees. On behalf of Dr. alonzo, thank you for the opportunity to participate in your patient's care. Code(s): I48.91 - UNSPECIFIED ATRIAL FIBRILLATION Qualifiers: Atrial fibrillation type: unspecified Qualified Code(s): I48.91 - Unspecified atrial fibrillation Visit type - Case Type Case Type: ED Admission - Emergency Emergency Visit: Yes ED Registration Date: 05/09/18 Care time: The patient presented to the Emergency Department on the above date and was hospitalized for further evaluation of their emergent condition. - New patient This patient is new to me today: Yes Date on this admission: 05/11/18 <Ryan Alonzo - Last Filed: 05/12/18 14:18> - Consultation REQUESTING PROVIDER: CONSULT REQUEST: We have been asked to surgically evaluate this patient for ( specify). PCP:Kary Wan NP HISTORY OF PRESENT ILLNESS: PMHx: PSHx: Home Medications Medication Instructions Recorded Amlodipine Besylate [Norvasc -] 5 mg PO DAILY 03/27/18 Azathioprine [Azasan] 100 mg PO DAILY 03/27/18 Ipratropium [place] 2 spray NS TID PRN 03/27/18 Metoprolol Succinate [Toprol Xl] 50 mg PO DAILY 03/27/18 Rivaroxaban [Xarelto -] 15 mg PO DAILY #14 tab 03/27/18 Spironolactone [Aldactone -] 25 mg PO DAILY 03/27/18 Torsemide [Demadex -] 20 mg PO BID 03/27/18 Tramadol HCl [Ultram] 50 mg PO BID 03/27/18 Azathioprine [Imuran -] 100 mg PO DAILY tablet 05/11/18 Rivaroxaban [Xarelto -] 15 mg PO DAILY@1800 tablet 05/11/18 Allergies Allergy/AdvReac Type Severity Reaction Status Date / Time No Known Allergies Allergy Verified 03/27/18 16:41 REVIEW OF SYSTEMS: CONSTITUTIONAL: Absent: fever, chills, diaphoresis, generalized weakness, malaise, loss of appetite, weight change CARDIOVASCULAR: Absent: chest pain, syncope, palpitations, irregular heart rate, lightheadedness , peripheral edema RESPIRATORY: Absent: cough, shortness of breath, dyspnea with exertion, wheezing, stridor, hemoptysis GASTROINTESTINAL: Absent: abdominal pain, abdominal distension, nausea, vomiting, diarrhea, constipation, melena, hematochezia GENITOURINARY: Absent: dysuria, frequency, urgency, hesitancy, hematuria, flank pain, genital pain MUSCULOSKELETAL: Absent: myalgia, arthralgia, joint swelling, back pain, neck pain SKIN: Absent: rash, itching, pallor HEMATOLOGIC/IMMUNOLOGIC: Absent: easy bleeding, easy bruising, lymphadenopathy NEUROLOGIC: Absent: headache, focal weakness, paresthesias, dizziness, unsteady gait, seizure, mental status changes, bladder or bowel incontinence PSYCHIATRIC: Absent: anxiety, depression, suicidal or homicidal ideation, hallucinations. PHYSICAL EXAM: GENERAL: Awake, alert, and fully oriented, in no acute distress. HEAD: Normal with no signs of trauma. EYES: PERRL, sclera anicteric, conjunctiva clear. NECK: Normal ROM, supple without lymphadenopathy, JVD, or masses. LUNGS: Clear to auscultation bilat anteriorly. No wheezes, and no crackles. No accessory muscle use. HEART: Regular rate and rhythm. No murmurs ABDOMEN: Soft, nontender, not distended, normoactive bowel sounds, no guarding, no rebound, no masses. No organomegaly. MUSCULOSKELETAL: Normal ROM at all joints. No bony deformities or tenderness. No CVA tenderness. UPPER EXTREMITIES: 2+ pulses, warm, well-perfused. No cyanosis. Cap refill <2 seconds. No peripheral edema. LOWER EXTREMITIES: 2+ pulses, warm, well-perfused. No calf tenderness. No peripheral edema. NEUROLOGICAL: Normal speech, gait not observed. PSYCH: Cooperative. Good eye contact. Appropriate mood and affect. SKIN: Warm, dry, normal turgor, no rashes or lesions noted. Vital Signs Temperature 98.0 F 05/11/18 17:00 Pulse Rate 85 05/11/18 17:00 Respiratory Rate 18 05/11/18 17:00 Blood Pressure 139/68 05/11/18 17:00 O2 Sat by Pulse Oximetry (%) 100 05/11/18 08:23 Lab Results WBC 4.7 K/mm3 (4.0-10.0) 05/11/18 06:45 RBC 4.10 M/mm3 (3.60-5.2) 05/11/18 06:45 Hgb 11.9 GM/dL (10.7-15.3) 05/11/18 06:45 Hct 36.0 % (32.4-45.2) 05/11/18 06:45 MCV 87.9 fl (80-96) 05/11/18 06:45 MCHC 32.9 g/dl (32.0-36.0) 05/11/18 06:45 RDW 14.1 % (11.6-15.6) 05/11/18 06:45 Plt Count 247 K/MM3 (134-434) 05/11/18 06:45 Sodium 139 mmol/L (136-145) 05/11/18 06:45 Potassium 4.1 mmol/L (3.5-5.1) 05/11/18 06:45 Chloride 106 mmol/L (98-107) 05/11/18 06:45 Carbon Dioxide 27 mmol/L (21-32) 05/11/18 06:45 Anion Gap 6 MMOL/L (8-16) L 05/11/18 06:45 BUN 23 mg/dL (7-18) H 05/11/18 06:45 Creatinine 0.7 mg/dL (0.55-1.3) 05/11/18 06:45 Random Glucose 75 mg/dL (74-106) 05/11/18 06:45 Calcium 9.0 mg/dL (8.5-10.1) 05/11/18 06:45 Blood Type A POSITIVE 05/09/18 15:32 Antibody Screen Negative 05/09/18 15:32 INR 1.18 (0.83-1.09) H 05/09/18 15:32 History reviewed, carotid Duplex images reviewed. There is evidence for left carotid artery disease ( PSV 213 PDV 68, ICA:CCA 2.3 ) in this patient with 60-79% stenosis by usual criteria. Due to the absence of stroke symptoms and the preexisting dementia I would not recommend additional imaging or intervention at this time.
[2018-05-11] MEDS ORDERED: TORSEMIDE 20 MG TABLET (FP) PO SCH (15:00)
--- NOTE | 2018-05-11 15:02 | ECHO ---
Name: LEONARDO DOHERTY Exam:Adult Echocardiogram Study Date: 05/11/2018 01:29 PM Age: 83 yrs Reason For Study: CHF Height: 63 in Weight: 194 lb BSA: 1.9 m2 MMode/2D Measurements & Calculations IVSd: 1.2 cm Ao root diam: 3.2 cm LVIDd: 3.5 cm LA dimension: 4.2 cm LVIDs: 2.0 cm LVPWd: 1.0 cm LVPWs: 1.6 cm EDV(Teich): 50.1 ml ESV(Teich): 13.1 ml LVOT diam: 2.0 cm Doppler Measurements & Calculations Ao V2 max: 125.1 cm/sec LV V1 max P.2 mmHg Ao max P.3 mmHg LV V1 max: 89.3 cm/sec BHAVYA(V,D): 2.2 cm2 MR max sanju: 367.7 cm/sec TR max sanju: 220.9 cm/sec MR max P.1 mmHg TR max P.5 mmHg PA V2 max: 83.3 cm/sec PI end-d sanju: 112.0 cm/sec PA max P.8 mmHg Med Peak E' Sanju: 9.3 cm/sec Lat Peak E' Sanju: 17.3 cm/sec Left Ventricle There is borderline concentric left ventricular hypertrophy. Ejection Fraction = 50-55%. Left ventric ular systolic function is normal. Right Ventricle The right ventricle is normal in size and function. Atria The left atrium is mildly dilated. Mitral Valve The mitral valve is normal in structure and function. There is no mitral valve stenosis. There is mil d mitral regurgitation. Tricuspid Valve The tricuspid valve is normal in structure and function. There is mild to moderate tricuspid regurgit ation. Right ventricular systolic pressure is normal. Aortic Valve The aortic valve is trileaflet. No hemodynamically significant valvular aortic stenosis. No aortic regurgitation is present. Pulmonic Valve The pulmonic valve is not well seen, but is grossly normal. There is no pulmonic valvular stenosis. M ild pulmonic valvular regurgitation. Great Vessels The aortic root is normal size. Pericardium/Pleura There is no pericardial effusion. Interpretation Summary There is borderline concentric left ventricular hypertrophy. Ejection Fraction = 50-55%. Left ventricular systolic function is normal. The right ventricle is normal in size and function. The left atrium is mildly dilated. There is mild mitral regurgitation. There is mild to moderate tricuspid regurgitation. Right ventricular systolic pressure is normal. There is no pericardial effusion. MD Chintan Cohn 05/11/2018 03:01 PM
--- NOTE | 2018-05-11 15:36 | DS ---
Physical Exam: SUBJECTIVE: Patient seen and examined OBJECTIVE: Vital Signs Period Temp Pulse Resp BP Sys/Leslie Pulse Ox Last 24 Hr 98 F-98.4 F 76-87 16-20 131-158/74-91 98-100 PHYSICAL EXAM GENERAL: Awake, alert, in no acute distress. HEAD: Normal with no signs of trauma. EYES: Pupils equal, round and reactive to light, extraocular movements intact, sclera anicteric, conjunctiva clear. No lid lag. EARS, NOSE, THROAT: Ears normal, nares patent, oropharynx clear without exudates. Moist mucous membranes. NECK: Normal range of motion, supple without lymphadenopathy, JVD, or masses. LUNGS: Breath sounds equal, clear to auscultation bilaterally. No wheezes, and no crackles. No accessory muscle use. HEART: irregular rate and rhythm ABDOMEN: Soft, nontender, not distended, normoactive bowel sounds, no guarding, no rebound, no masses. No hepatomegaly or splenomegaly. MUSCULOSKELETAL: Normal range of motion at all joints. No bony deformities or tenderness. No CVA tenderness. UPPER EXTREMITIES: No peripheral edema. LOWER EXTREMITIES:left upper thigh dependent edema from top of thigh to knee - improving NEUROLOGICAL: Normal speech. Normal gait. PSYCHIATRIC: Appropriate mood and affect. SKIN: Warm, dry, normal turgor, no rashes or lesions noted, normal capillary refill. LABS Laboratory Results - last 24 hr 05/10/18 05/11/18 05/11/18 15:46 06:45 06:45 WBC 4.7 RBC 4.10 Hgb 11.9 Hct 36.0 MCV 87.9 MCH 28.9 MCHC 32.9 RDW 14.1 Plt Count 247 MPV 8.3 Absolute Neuts (auto) 2.1 Neutrophils % 43.8 Lymphocytes % 43.9 H Monocytes % 8.7 Eosinophils % 2.9 Basophils % 0.7 Nucleated RBC % 0 Sodium 139 Potassium 4.1 Chloride 106 Carbon Dioxide 27 Anion Gap 6 L BUN 23 H Creatinine 0.7 Creat Clearance w eGFR > 60 POC Glucometer 111 Random Glucose 75 Calcium 9.0 Magnesium 2.0 Total Bilirubin 0.4 AST 10 L ALT 9 L Alkaline Phosphatase 52 Total Protein 6.2 L Albumin 2.8 L HOSPITAL COURSE: Date of Admission:05/09/18 Date of Discharge: 05/11/18 ASSESSMENT/PLAN: Patient is an 83 year old female with a significant past medical history of hypertension, CAD (3 vessel CABG), chronic dyspnea, CHF (preserved EF), dementia , Hep C, and newly diagnosed atrial fibrillation (on xarelto). Patient is brought into the ED by her family for a 2 month history of worsening shortness of breath on exertion and right sided lower extremity weakness worsening since Monday. Per her daughter patient ambulates with a rolling walker with standby assistance and has been having difficulty walking short distances secondary to increased dyspnea as well as c/o of right lower extremity weakness. No syncopal episodes or falls reported. Patient denies chest pain, shortness of breath at rest, fevers, chills, nausea, vomiting, urinary symptoms or other complaints. Card: Hypertension, on metoprolol 50mg daily, norvasc 5mg daily. BP stable. Dyspnea, weakness, resolved: troponins negative x 2. echo reviewed, no pericardial effusion. mild tr. patient to follow up with Dr. Melissa, jigman. No events on tele. transitioned back to home dose of demadez. CAD, on cholestyramine. which as been discontinued by her jigman. Dyspnea with exertion, likely secondary to fluid overload. started on lasix 20mg iv po bid. bnp 3000. transitioned back to her home dose of demadez. tolerating room air. CHF: on metoprolol, demadex. Atrial fibrillation. recent diagnosis. on xarelto. metoprolol. currently rate controlled. Muscular Skeletal: Poor mobility: ambulated 65 feet with RW. Has [employer] services at home. Seen by neurology, no further interventions. Vascular: carotid stenosis 50- 69% seen on carotid study, seen by vascular. notes reviewed. No surgical interventions. Neuro: dementia: at baseline. full code Patient to follow up with her home jigman, Dr. Melissa on discharge. Minutes to complete discharge: 60 Discharge Summary Reason For Visit: SOB ON EXERTION; ATRIAL FIBRILLATION Current Active Problems Right leg weakness (Acute) Condition: Improved - Instructions Referrals: Stephani Yanez MD [Primary Care Provider] - Disposition: HOME - Home Medications Comprehensive Discharge Medication List: Ambulatory Orders Amlodipine Besylate [Norvasc -] 5 mg PO DAILY 03/27/18 Azathioprine [Azasan] 100 mg PO DAILY 03/27/18 Cholestyramine/Aspartame [Cholestyramine Light Packet] 4 gm PO BID 03/27/18 Ipratropium Davis 2 spray NS TID PRN 03/27/18 Metoprolol Succinate [Toprol Xl] 50 mg PO DAILY 03/27/18 Rivaroxaban [Xarelto -] 15 mg PO DAILY #14 tab 03/27/18 Spironolactone [Aldactone] 25 mg PO DAILY 03/27/18 Torsemide [Demadex] 20 mg PO BID 03/27/18 Tramadol HCl [Ultram] 50 mg PO BID 03/27/18 This patient is new to me today: No Emergency Visit: Yes ED Registration Date: 05/09/18 Care time: The patient presented to the Emergency Department on the above date and was hospitalized for further evaluation of their emergent condition. Critical Care patient: No - Discharge Referral [facility]erred to [facility] Med P.C.: No
[2018-05-11 19:54] VITALS: BP 139/68; PULSE 85; TEMP 98
== END 2018-05-11 18:02 | disposition home or self-care (01) | DRG 291 ==
LOC: JER 13:22 → JERBED 17:05 → J4W 23:33
PROVIDERS: ADMIT Internal Medicine; ATTEND Nurse Practitioner Family
DX: I11.0 Hypertensive heart disease with heart failure (principal); I50.31 Acute diastolic (congestive) heart failure; I48.91 Unspecified atrial fibrillation; I25.10 Atherosclerotic heart disease of native coronary artery without angina pectoris; B19.20 Unspecified viral hepatitis C without hepatic coma; F03.90 Unspecified dementia, unspecified severity, without behavioral disturbance, psychotic disturbance, mood disturbance, and anxiety; I65.22 Occlusion and stenosis of left carotid artery; Z95.1 Presence of aortocoronary bypass graft
CPT/HCPCS: 36415; 70450-TC; 71045-TC-FY; 80053; 80061; 81003; 81015; 82465; 82550; 82962; 83036; 83718; 83721; 83735; 83880; 84100; 84478; 84484; 85025; 85610; 86850; 86900; 86901; 87040; 87086; 90688; 93005; 93010; 93306-TC; 93880-TC; 97116-GP; 97161-GP; 99282-25; G0008; J7030

== ENCOUNTER 2020-05-15 13:55 | Emergency (ER) | payer OTHER ==
[2020-05-15 14:07] VITALS: BMI 31.7
--- OUTSIDE RECORDS SUMMARY | 2020-05-15 14:44 | XMS ---
:1935 Author Organization [facility] Care Team Providers Name Role Phone Monroe Bautista Unavailable [phone] Luca Melissa W Unavailable Unavailable Belén, W Unavailable Unavailable Belén, W Unavailable Unavailable Belén, W Unavailable Unavailable Re-disclosure Warning The records that you are about to access may contain information from federally- assisted alcohol or drug abuse programs. If such information is present, then the following federally mandated warning applies: This information has been disclosed to you from records protected by federal confidentiality rules (42 CFR part 2). The federal rules prohibit you from making any further disclosure of this information unless further disclosure is expressly permitted by the written consent of the person to whom it pertains or as otherwise permitted by 42 CFR part 2. A general authorization for the release of medical or other information is NOT sufficient for this purpose. The Federal rules restrict any use of the information to criminally investigate or prosecute any alcohol or drug abuse patient.The records that you are about to access may contain highly sensitive health information, the redisclosure of which is protected by Article 27-F of the [facility] Public Health law. If you continue you may haveaccess to information: Regarding HIV / AIDS; Provided by facilities licensed or operated by the [facility] Office of Mental Health; or Provided by the [facility] Office for People With Developmental Disabilities. If such information is present, then the following [facility] mandated warning applies: This information has been disclosed to you from confidential records which are protected by state law. State law prohibits you from making any further disclosure of this information without the specific written consent of the person to whom it pertains, or as otherwise permitted by law. Any unauthorized further disclosure in violation of state law may result in a fine or residential sentence or both. A general authorization for the release of medical or other information is NOT sufficient authorization for further disclosure. Encounters Encounter Providers Location Date Indications Data Source(s ) Outpatient Attender: Luca Carpio 03/11/2020 [facility]: 01:25:00 PM Medical C enter Luca EDT MoserReferrer: Luca Melissa Att[facility] 01:25:00 PM [facility] EDT - [place]) 03/11/2020 01:25:00 PM EDT Outpatient 03/11/2020 [facility] 10:42:00 AM Medical Cent[facility] EDT Outpatient [address] 03/11/2020 eCW1 ([facility] 12:00:00 AM [facility] EDT [facility]) Outpatient 03/11/2020 [facility] 12:00:00 AM Medical Cente r EDT Outpatient 03/22/2019 [facility] 10:43:00 AM Medical Cente r EDT Outpatient Attender: Luca H [facility]: [facility] Luca EDT MoserReferrer: Lcua Melissa Attender: Monroe [facility] 10:00:00 AM [facility] EDT - [place]) 03/22/2019 10:00:00 AM EDT Outpatient 03/22/2019 [facility] 12:00:00 AM Medical Cente r EDT Insurance Providers Payer name Policy type Policy ID Covered Covered libertarian's Policy P anayeli / Coverage libertarian ID relationship to [place] Inf ormation type [place] MEDICAID [id number] SP [id number] HIP AUTOMOTIVE TECHNICIAN [id number] SP [id number] HIP MEDICARE O [id number] 01 [id number] W [id number] O EMBLEMHEALTH W [id number] 01 [id number] [facility] W [id number] Problems, Conditions, and Diagnoses Code Display Name Description Problem Type Effective Data Sour ce(s) Dates E66.9 Obesity, unspecified OBESITY, Diagnosis 03/11/2020 [facility] UNSPECIFIED 01:25:00 PM Medical Cent er EDT I25.10 Atherosclerotic ATHSCL HEART Diagnosis 03/11/2020 [facility] heart disease of [facility] [place] 01:25:00 [facility] [place] coronary CORONARY ARTERY EDT artery without W/O ANG PCTRS angina pectoris I10 Essential (primary) ESSENTIAL Diagnosis 03/11/2020 [facility] hypertension (PRIMARY) 01:25:[address] HYPERTENSION EDT Z09 Encounter for ENCNTR FOR F/U Diagnosis 03/11/2020 [facility] follow-up EXAM AFT TRTMT 01:25:00 PM Medical C enter examination after FOR COND OTH THAN EDT completed treatment MALIG NEOPLM for conditions other than malignant neoplasm Results ID Date Data Source cvc ecg 03/12/2020 12:21:59 PM EDT eCW1 ([facility]) Name Value Range Interpretation Code Description Data Corine rce(s) Supporting Document(s ) cvc ecg eCW1 ([facility]) Procedure Vital Signs ID Date Data Source UNK Name Value Range Interpretation Code Description Data Source(s) Diastolic blood 76 mm[Hg] 76 mm[Hg] eCW1 ([facility] nt pressure [facility]) Systolic blood 125 mm[Hg] 125 mm[Hg] eCW1 ([facility] t pressure [facility]) Oxygen saturation 98 % 98 % eCW1 (S aint in Arterial blood [facility] by [facility]ulse [facility]xim[facility]) Body temperature 98.0 [degF] 98.0 [degF] eCW1 ( [facility]) Respiratory rate 19 /min 19 /min eCW1 ( [facility]) Heart rate 80 /min 80 /min eCW1 ([facility]) Body mass index 36.04 kg/m2 36.04 kg/m2 eCW1 (S aint (BMI) [Ratio] [facility]) Body weight 210 [lb_av] 210 [lb_av] eCW1 ([facility]) Body height 64 [in_i] 64 [in_i] eCW1 ([facility])
--- NOTE | 2020-05-15 14:49 | PDOC ---
History of Present Illness - General Chief Complaint: Pain Stated Complaint: RIGHT FOOT PAIN Time Seen by Provider: 05/15/20 14:18 - History of Present Illness Initial Comments: 05/15/20 14:47 85yo F w/ PMHx triple CABG, CHF, AF on Xarelto presenting w/ pain, paresthesia, poiliokothermia, and paralysis of the RLE below the knee. This started 2 days ago with pain and decreased ability to move in the right foot. Today it became mottled, and it is colder than the LLE. she reports compliance with her AC. Past History - Medical History Allergies/Adverse Reactions: Allergies Allergy/AdvReac Type Severity Reaction Status Date / Time No Known Allergies Allergy Verified 05/15/20 14:07 Home Medications: Ambulatory Orders Amlodipine Besylate [Norvasc -] 5 mg PO DAILY 03/27/18 Azathioprine [Azasan] 100 mg PO DAILY 03/27/18 Metoprolol Succinate [Toprol Xl] 100 mg PO DAILY 03/27/18 Spironolactone [Aldactone -] 25 mg PO DAILY 03/27/18 Torsemide [Demadex -] 20 mg PO DAILY 03/27/18 Rivaroxaban [Xarelto] 15 mg PO DAILY@1800 tablet 05/11/18 Memantine HCl 10 mg PO BID 05/15/20 Cardiac Disorders: Yes (CAD, 3 vessel CABG, NEw afib 2 months ago) COPD: No CHF: Yes DVT: No Dementia: (early onset) HTN: Yes - Surgical History Cardiac Surgery: (3 vessel CABG) - Immunization History Immunization Up to Date: Yes - Psycho-Social/Smoking History Smoking History: Never smoked Have you smoked in the past 12 months: No - Substance Abuse Hx (Audit-C & DAST Scrn) How often the patient has a drink containing alcohol: Never Score: In Men: 4 or > Positive; In Women: 3 or > Positive: 0 Screen Result (Pos requires Nsg. Audit-10AR): Negative In the last yr the pt used illegal drug/Rx for NonMed reason: No Score: Yes response is considered Positive: 0 Screen Result (Positive result requires Nsg. DAST-10): Negative Review of Systems - Review of Systems Able to Perform ROS?: Yes Is the patient limited Bur[place]ian proficient: No Constitutional: No: Chills, Diaphoresis, Fever HEENTM: No: Symptoms Reported, Blurred Vision Respiratory: No: Symptoms reported Cardiac (ROS): No: Symptoms Reported ABD/GI: No: Symptoms Reported : No: Symptoms Reported Musculoskeletal: No: Symptoms Reported Integumentary: Yes: Change in Color, Pallor (RLE), Other (Poilikothermia, pallor, paralysis, paresthesia, and pulselessness of the RLE. Pt cannot feel dorsum, 1st digit, or plantar surface of foot. ) *Physical Exam - Vital Signs Last Vital Signs Temp Pulse Resp BP Pulse Ox 98 F 84 18 124/105 H 100 05/15/20 14:05 05/15/20 14:05 05/15/20 14:05 05/15/20 14:05 05/15/20 14:05 - Physical Exam General Appearance: Yes: Nourished, Appropriately Dressed, Obese. No: Apparent Distress HEENT: positive: EOMI, Normal Voice Neck: positive: Trachea midline, Supple Respiratory/Chest: positive: Lungs Clear, Normal Breath Sounds. negative: Chest Tender Cardiovascular: positive: Regular Rhythm, Regular Rate Gastrointestinal/Abdominal: positive: Normal Bowel Sounds, Soft Musculoskeletal: negative: Normal Inspection, CVA Tenderness Extremity: positive: Coldness, Cyanosis, Swelling (RLE is mottled, cold, pulseless (below the femoral artery). LLE). negative: Normal Capillary Refill, Normal Inspection, Normal Range of Motion Integumentary: positive: Cyanotic, Mottled, Cold. negative: Normal Color, Dry, Warm Neurologic: positive: Fully Oriented, Alert, Normal Response ED Treatment Course - LABORATORY CBC & Chemistry Diagram: 05/15/20 15:16 05/15/20 15:16 Medical Decision Making - Medical Decision Making 05/15/20 15:53 Consulted w/ Dr. Batres (Vascular Surgery), who said to do CTA Aortra w/ BLE runoff and work to transfer to [facility] for continuity of care. 05/15/20 17:11 Spoke w/ Dr. Higgins (Vascular Surgery attending) who accepted the patient to his service. Discharge - Discharge Information Problems reviewed: Yes Clinical Impression/Diagnosis: Lower limb ischemia Atrial fibrillation Qualifiers: Atrial fibrillation type: unspecified Qualified Code(s): I48.91 - Unspecified atrial fibrillation Condition: Guarded Disposition: TRANSFER ACUTE CARE/OTHER HOSP - Follow up/Referral Referrals: Stephani Yanez MD [Primary Care Provider] - - Patient Discharge Instructions - Post Discharge Activity
--- NOTE | 2020-05-15 15:15 | PDOC ---
Attending Attestation - Resident Resident Name: Darryl Alcala - ED Attending Attestation I have performed the following: I have examined & evaluated the patient, The case was reviewed & discussed with the resident, I agree w/resident's findings & plan - HPI HPI: 05/15/20 15:10 85-year-old female with history of CHF, atrial fibrillation on Xarelto, brought in by family for progressive right lower extremity pain over the course of two days, now with discoloration today so present for evaluation. associated with increased pain and difficulty moving her toes. no injury. - Physicial Exam PE: 05/15/20 15:11 vss alert, lying in stretcher heart irregular, lungs clear, abd benign palpable and +doppler R femoral pulse, unable to palpate or doppler popliteal/DP/TP pulse. decreased sensation distal to ankle, + discoloration and cool to touch distal to proximal third of lower leg. neuro otherwise non-focal - Critical Care Time Total Critical Care Time: 75 Critical Care Statement: The care of this patient involved high complexity decision making to prevent further life threatening deterioration of the patient's condition and/or to evaluate & treat vital organ system(s) failure or risk of failure. - Medical Decision Making 05/15/20 15:13 85y/o F with progressive sxs of RLE limb ischemia over 2 days, unable to doppler pulses here. no evidence of sepsis at this time. takes xarelto for afib. vascular surgery consulted additional heparin doppler imaging v. cta? labs, ekg admit 05/15/20 16:26 seen by vascular at bedside, agree will need intervention. CTA RLE, consider transfer [facility] given all primary and specialist care has been there Heart Score/ECG Review #1 ECG reviewed & interpreted by me at: 14:16 General ECG Interpretation: Normal Rate (afib at 79), Normal Intervals (qtc 435), No acute ischemic changes Compared to previous ECG there are: No significant change (c/w 05/09/18) Discharge - Discharge Information Problems reviewed: Yes Clinical Impression/Diagnosis: Lower limb ischemia Atrial fibrillation Qualifiers: Atrial fibrillation type: unspecified Qualified Code(s): I48.91 - Unspecified atrial fibrillation Condition: Guarded - Follow up/Referral Referrals: Stephani Yanez MD [Primary Care Provider] - - Patient Discharge Instructions - Post Discharge Activity
[2020-05-15 15:37] LABS: BASO % 1.1 % (0-2.0); EOS % 0.4 % (0-4.5); HEMATOCRIT 35.6 % (32.4-45.2); HEMOGLOBIN 11.9 GM/dL (10.7-15.3); MCH 29.6 pg (25.7-33.7); MCHC 33.5 g/dl (32.0-36.0); MEAN CELL VOLUME 88.2 fl (80-96); MEAN PLT VOLUME 9.1 fl (7.5-11.1); MONO % 11.7 % (3.8-10.2); NEUT % 66.8 % (42.8-82.8); PLATELET COUNT 265 K/MM3 (134-434); RBC 4.03 M/mm3 (3.60-5.2); RDW 14.3 % (11.6-15.6); WHITE BLOOD COUNT 7.4 K/mm3 (4.0-10.0)
[2020-05-15 15:51] LABS: INR 1.02 (0.83-1.09)
[2020-05-15 15:54] LABS: ACTIVATED PTT 28.5 SECONDS (25.2-36.5)
[2020-05-15 16:25] LABS: ALBUMIN 3.5 g/dl (3.4-5.0); BILIRUBIN,TOTAL 0.4 mg/dL (0.2-1); BLOOD UREA NITROGEN 35.5 mg/dL (7-18); CALCIUM 9.5 mg/dL (8.5-10.1); CREATININE 1.1 mg/dL (0.55-1.3); POTASSIUM 4.8 mmol/L (3.5-5.1); TOT PROT 7.5 g/dl (6.4-8.2)
[2020-05-15 18:41] VITALS: BP 143/60; PULSE 85; TEMP 97.4
--- NOTE | 2020-05-16 08:15 | EKG ---
Test Reason : Blood Pressure : / mmHG Vent. Rate : 079 BPM Atrial Rate : 104 BPM P-R Int : 000 ms QRS Dur : 088 ms QT Int : 380 ms P-R-T Axes : 000 013 027 degrees QTc Int : 435 ms POOR DATA QUALITY, INTERPRETATION MAY BE ADVERSELY AFFECTED ATRIAL FIBRILLATION ABNORMAL ECG WHEN COMPARED WITH ECG OF 09-MAY-2018 14:05, CRITERIA FOR SEPTAL INFARCT ARE NO LONGER PRESENT Confirmed by Sherrill Hoang ([id number]) on 05/16/2020 8:15:34 AM Referred By: Confirmed By:Sherrill Hoang
== END 2020-05-15 22:33 | disposition short-term general hospital (02) ==
LOC: SUPCPDRO 13:55 → JER 13:55
DX: M62.262 Nontraumatic ischemic infarction of muscle, left lower leg (principal); I48.91 Unspecified atrial fibrillation
CPT/HCPCS: 36415; 80053; 85025; 85610; 85730; 86850; 86900; 86901; 93005; 93010; 99291; 99292; C9803; U0003